=== PATIENT | female | born 1995 | race Caucasian/White ===

== ENCOUNTER 2019-02-10 13:03 | Inpatient (IN) | payer OTHER ==
[~2019-02-10] VITALS: Ht 157.5 cm; Wt 77.3 kg
--- NOTE | 2019-02-10 13:41 | TRIAGE ---
OB Triage Datetime Report Generated by CPN: 02/10/2019 13:40 Datetime: 02/10/2019 13:23 Assessment Type: Triage Maternal Assessment Level of Consciousness: Fully Conscious DTR's/Clonus: DTRs 2+; No Clonus Headache: Denies Blurred Vision: No Respiratory Effort: Unlabored; Regular Rhythm; Equal Expansion Breath Sounds, Left: Clear and Equal Breath Sounds, Right: Clear and Equal Nausea/Vomiting: Denies RUQ Epigastric Pain: Denies Lower Extremities Edema: None Degree: None Upper Extremities Edema: None Degree: None Facial Edema: None Fall Risk Assessment History of Falling: (0) No Secondary Diagnosis: (0) No Ambulatory Aid: (0) Bedrest/Nurse Assist IV Therapy: (0) No Gait: (0) Normal/Bedrest/Immobile Mental Status: (0) Oriented to Own Ability Fall Score: 0 Fall Risk Score Definition: No Risk: No action required Datetime: 02/10/2019 13:22 EGA: 40.6 Datetime: 02/10/2019 12:48 Time of Arrival: 02/10/2019 12:48 Arrived By: Ambulatory Arrived From: Home Chief Complaint: PT CAME IN STATING THAT HER DUE DATE WAS 02/04 AND THAT THE CLINIC TOLD HER TO COM E TODAY FOR MONITORING Movement: Present Contractions: Denies/Absent Rupture of Membranes: Denies Vaginal Discharge: Denies Recent Sexual Intercouse: Denies Abdominal Trauma: Not Applicable Additional Patient Complaints: NONE Time Provider Notified: 02/10/2019 13:22 Provider Notified: VALENTINE Initial Plan: CARTER ROACH EFW
[2019-02-10] MEDS ORDERED: AMPICILLIN 2 GM/NS (PMX) 100 ML ONE (14:56)
[2019-02-10] MEDS ORDERED: LACTATED RINGER'S 1,000 ML IV SCH (14:59)
[2019-02-10] MEDS ORDERED: CARBOPROST 250 MCG INJ IM PRN ×2 (15:00→20:30)
[2019-02-10] MEDS ORDERED: OXYTOCIN 30 UNITS/LR 500 ML IV SCH ×2 (15:00)
[2019-02-10] MEDS ORDERED: MISOPROSTOL 200 MCG TAB PR PRN ×2 (15:00→20:30)
[2019-02-10] MEDS ORDERED: OXYTOCIN 30 UNITS/LR 500 ML IV PRN ×2 (15:00→20:30)
[2019-02-10] MEDS ORDERED: LIDOCAINE 1% (MPF) 30 ML INJ INJ PRN (15:00)
[2019-02-10] MEDS ORDERED: BUTORPHANOL 2 MG INJ IV PRN (15:00)
[2019-02-10] MEDS ORDERED: METHYLERGONOVINE 0.2 MG INJ IM PRN ×2 (15:00→20:30)
[2019-02-10] MEDS ORDERED: AMPICILLIN 2 GM/NS (PMX) 100 ML IV ONE (15:00)
[2019-02-10] MEDS ORDERED: AMPICILLIN 1 GM/NS (PMX) 50 ML IV SCH (17:30)
--- NOTE | 2019-02-10 19:50 | HP ---
Date/Time of Note Date/Time of Note DATE: 02/10/19 TIME: 19:47 OB - History Hx of Present Free Text/Dictation 23 years old 2 para 1-0-0-1 with single intrauterine at 40 weeks and 6 days with OMKAR of 02/04/2019 complaining of uterine contractions. She states good movement. She denies nausea, vomiting, shortness of breath, chest pain, headache, visual changes, vaginal bleeding or LOF. Chief Complaint: Uterine contractions Estimated Due Date: Feb 04, 2019 : 2 Para: 1 Spontaneous : 0 Therapeutic : 0 Care: Good Care Ultrasounds: Normal mid trimester US Obstetrical Complications: None Medical Complications: None Past Family/Social History * Past Medical, Surgical, Family and Obstetric Histories reviewed which are unremarkable Blood Type: O+ Rubella: immune RPR/VDRL: Negative GBS Status: Unknown HBsAG: Negative OB Admission Exam Vital Signs Vital Signs Blood pressure 115/67, pulse rate 74/minutes, respiratory rate 16/minutes, temperature 98.5 Physical Exam HEENT: WNL Heart: Rhythm Normal Lungs: Clear Abdomen: WNL Extremities: Normal Reflexes: Normal Cervical Dilatation: 6cm Effacement: 100% Station: -2 Membranes: Intact Heart Rate: 130's Accelerations: Accelerations Present Decelerations: No Decelerations Varibility: Moderate Contractions on Admission: < 5 Minutes Apart Intensity: Firm Last 72 hours Lab Results CBC & BMP 02/10/19 15:00 OB Assessment/Plan Other plan: 23 years old 2 para 1-0-0-1 with single intrauterine at 40 weeks and 6 days in active labor - FHR: No sign of metabolic acidosis- Category I - Continuous EFM, toco - CBC, blood type and screen - Analgesia options with R/B/A discussed in detail with patient - Epidural per patient request - Please see the orders - O+/Rubella: Immune - GBS: Unknown, ampicillin ordered Admission, procedures, expectations, risks and possible complications have been discussed in detail with the patient. Risk of vaginal delivery including but not limited to bleeding, infection, cervical laceration, placental retention, injury to fetus, blood transfusion, blood transfusion related infection, risk of anesthesia, adhesion, cervical laceration, episiotomy/laceration, possible delivery with risk of bleeding, infection, injury to other organs (bowel, bladder, ureter, vessels, nerves), injury to fetus, blood transfusion, blood transfusion related infection, risk of anesthesia, scar and hernia formation, needs for future , removal of uterus or any other indicated surgery discussed with the patient. She expressed understanding and repeats the risks. All of her questions were answered. She signed the informed consent. PHYSICIAN'S VERIFICATION OF INFORMED CONSENT The patient was counseled regarding the procedure, its indications, risks, potential complications and alternatives and any questions were answered. Consent was obtained. PLANNED PROCEDURE/TREATMENT: Vaginal delivery, episiotomy, repair of laceration possible delivery WILLEM GRIJALVA Feb 10, 2019 19:50
--- NOTE | 2019-02-10 19:56 | LDN ---
Date/Time of Note Date/Time of Note DATE: 02/10/19 TIME: 19:50 Delivery Summary 23 years old 2 para 1-0-0-1 with single intrauterine at 40 weeks and 6 days delivered a viable female over intact perineum with compound presentation at the right occiput transverse. Nose and mouth suction. Rest of body delivered. Cord clamped and cut after stopping pulsation. Baby given to the nurse. Placenta delivered intact and spontaneously with three- vessel cord. Patient tolerated procedure well. Time of delivery 17:49 Weight 8 pounds 5 ounces 9 at 1 minutes and 9 at 5 minutes EBL 150 mL Weeks of Gestation 40 weeks and 6 days Placenta Delivered: Spontaneously Meconium: Light Episiotomy: No Estimated blood loss: 300 Sponge & Needle done & correct: Yes All needle counts correct: Yes Infant Delivery Information Sex Sex: female Apgars 1 Minute: 9 5 Minute: 9 10 Minute: 10 Suctioning Nose & mouth suctioned at rob: Yes Umbilical Cord Umbilical cord with: 3 Vessels Cord presentations: no nuchal cord Cord Blood was obtained: Yes Mother & Baby Disposition Disposition Mom & Baby to Maternity; Good: Yes WILLEM GRIJALVA Feb 10, 2019 19:56
[2019-02-10 20:10] VITALS: BP 121/56; PULSE 75; RESP 18
[2019-02-10] MEDS: DEXTROSE 5%-LR 1,000 ML IV SCH (20:18)
[2019-02-10] MEDS ORDERED: ACETAMINOPHEN 325 MG TAB PO PRN (20:30)
[2019-02-10] MEDS ORDERED: DIPHENHYDRAMINE 50 MG INJ IV PRN (20:30)
[2019-02-10] MEDS ORDERED: DIBUCAINE 1% 30 GM OINT TOP PRN (20:30)
[2019-02-10] MEDS ORDERED: WITCH HAZEL/GLYCERIN PAD PR PRN (20:30)
[2019-02-10] MEDS ORDERED: SENNA/DOCUSATE NA (8.6MG/50MG) TAB PO PRN (20:30)
[2019-02-10] MEDS ORDERED: BENZOCAINE 20% 56 ML SPRAY TOP PRN (20:30)
[2019-02-10] MEDS ORDERED: MAGNESIUM HYDROXIDE 30ML CUP PO PRN (20:30)
[2019-02-10] MEDS ORDERED: ONDANSETRON 4 MG INJ IV PRN (20:30)
[2019-02-10] MEDS ORDERED: LANOLIN HPA 1 PKT TOP PRN (20:30)
[2019-02-10] MEDS ORDERED: OXYCODONE/ASPIRIN (4.88/325) TAB PO PRN (20:30)
[2019-02-10] MEDS ORDERED: ZOLPIDEM 5 MG TAB PO PRN (20:30)
[2019-02-10 20:40] VITALS: BP 112/59; PULSE 73; RESP 18
[2019-02-10] MEDS: LACTATED RINGER'S 1,000 ML IV* SCH (23:22)
[2019-02-10] MEDS: IBUPROFEN 600 MG TAB PO SCH (23:41)
[2019-02-11] VITALS: BP 106/59; PULSE 72; RESP 18
[2019-02-11 04:15] VITALS: BP 102/56; PULSE 69; RESP 18
[2019-02-11] MEDS: DEXTROSE 5%-LR 1,000 ML IV SCH ×2 (04:18→12:18)
[2019-02-11] MEDS: LACTATED RINGER'S 1,000 ML IV* SCH ×2 (04:18→12:18)
[2019-02-11] MEDS: IBUPROFEN 600 MG TAB PO SCH ×3 (06:02→18:09)
[2019-02-11 10:44] VITALS: BP 115/58; RESP 18
[2019-02-11 15:40] VITALS: BP 101/53; PULSE 69; RESP 18
[2019-02-11 20:25] VITALS: BP 108/72; PULSE 64; RESP 18
--- NOTE | 2019-02-11 21:11 | PN ---
Date/Time of Note Date/Time of Note DATE: 02/11/19 TIME: 21:09 OB Subjective Subjective Subjective PPD# 1 Patient is doing well. She denies nausea, vomiting, shortness of breath, chest pain, headache. She has been ambulating without difficulty, tolerating regular diet. Pain is well controlled on current medications OB Objective Objective Objective VS - Last 72 Hours, by Label Date Temp Pulse Resp B/P (MAP) Pulse Ox O2 O2 Flow FiO2 Time Delivery Rate 02/11/19 98.6 69 18 101/53 15:40 (69) 02/11/19 98.3 18 115/58 Room Air 10:44 (77) 02/11/19 98.2 69 18 102/56 Room Air 04:15 (71) 02/11/19 98.6 72 18 106/59 Room Air 00:00 (75) 02/10/19 98.1 73 18 112/59 Room Air 20:40 (76) 02/10/19 98.2 75 18 121/56 Room Air 20:10 (77) General: AAO X 3, comfortable, NAD, appropriate mood and affect. ABD: +BS. Soft, non-tender. Uterus 2 cm below umbilicus Flank: No CVA tenderness (B/L) LE: Mild edema. No clubbing, cyanosis, thigh or calf tenderness (B/L). Homans 'sign is negative Laboratory Tests Test 02/10/19 15:00 02/11/19 07:32 White Blood Count 9.3 10^3/ul 10.6 10^3/ul Red Blood Count 4.32 10^6/ul 3.62 10^6/ul Hemoglobin 12.4 g/dl 10.4 g/dl Hematocrit 38.1 % 31.3 % Mean Corpuscular Volume 88.2 fl 86.5 fl Mean Corpuscular Hemoglobin 28.7 pg 28.7 pg Mean Corpuscular Hemoglobin Concent 32.5 g/dl 33.2 g/dl Red Cell Distribution Width 14.7 % 14.6 % Platelet Count 292 10^3/UL 279 10^3/UL Mean Platelet Volume 11.0 fl 11.0 fl Immature Granulocytes % 0.300 % 0.400 % Neutrophils % 72.4 % 57.0 % Lymphocytes % 21.1 % 33.3 % Monocytes % 5.4 % 7.6 % Eosinophils % 0.4 % 1.4 % Basophils % 0.4 % 0.3 % Nucleated Red Blood Cells % 0.0 /100WBC 0.0 /100WBC Immature Granulocytes # 0.030 10^3/ul 0.040 10^3/ul Neutrophils # 6.7 10^3/ul 6.0 10^3/ul Lymphocytes # 2.0 10^3/ul 3.5 10^3/ul Monocytes # 0.5 10^3/ul 0.8 10^3/ul Eosinophils # 0.0 10^3/ul 0.2 10^3/ul Basophils # 0.0 10^3/ul 0.0 10^3/ul Nucleated Red Blood Cells # 0.0 10^3/ul 0.0 10^3/ul Prothrombin Time 12.4 Sec Prothrombin Time Ratio 1.0 INR International Normalized Ratio 0.91 Activated Partial Thromboplast Time 31.2 Sec Rapid Plasma Reagin NONREACTIVE Hepatitis B Surface Antigen NEGATIVE OB Assessment/Plan Other plan: 23 years old 2 para 2001 s/p normal vaginal delivery at 40 weeks and 6 days. PPD#1 - Contraception methods with R/B/A/FR discussed - Continue care - Discharge home tomorrow - Rx and instruction given - Follow up in 2 and 6 weeks at clinic WILLEM GRIJALVA Feb 11, 2019 21:11
--- NOTE | 2019-02-11 21:12 | DS ---
Date/Time of Note Date/Time of Note DATE: 02/11/19 TIME: 21:11 Obstetrical Discharge Record Final Diagnosis Final Diagnosis: Term delivered Other Final Diagnosis 23 years old 2 para 2002 s/p normal vaginal delivery at 40 weeks and 6 days. PPD#1. course was unremarkable. She is ambulating and tolerating regular diet. She is voiding without difficulty. Pain is controlled on current medication. - Contraception methods with R/B/A/FR discussed - Continue care - Discharge home tomorrow - Rx and instruction given - Follow up in 2 and 6 weeks at clinic Vaginal Delivery Obstetrical Delivery: Spontaneous Condition on Discharge Physical Assessment Last Vitals: Vital Signs Date Temp Pulse Resp B/P (MAP) Pulse Ox O2 O2 Flow FiO2 Time Delivery Rate 02/11/19 98.6 69 18 101/53 15:40 (69) 02/11/19 Room Air 10:44 Voiding: Yes Bowel Movement: Yes Breast: Soft, non-tender Fundus: Firm Calf Tenderness: No Patient Condition: Stable WILLEM GRIJALVA Feb 11, 2019 21:12
[2019-02-12] MEDS: IBUPROFEN 600 MG TAB PO SCH ×3 (00:05→11:59)
[2019-02-12 04:00] VITALS: BP 101/57; PULSE 62; RESP 18
[2019-02-12 07:30] VITALS: BP 94/51; PULSE 60; RESP 18
[2019-02-12] MEDS ORDERED: MEASLES,MUMPS,RUBELLA VACCINE INJ SC* ONE (09:00)
[2019-02-12] MEDS ORDERED: DIPHTH/TET/ACEL PERTUSS (ADULT) 0.5 ML VIAL IM* ONE (09:00)
--- NOTE | 2019-02-13 15:53 | DELSUM ---
Delivery Summary A-C Datetime Report Generated by CPN: 02/13/2019 15:53 DELIVERY PERSONNEL Backup Administrator: Enoch Woodalla MATERNAL INFORMATION Delivery Anesthesia: None Medications in Delivery: 30 units pitocin, cytotec 400mcg PO, 400mcg SC Delivery QBL (ml): 122 Placenta Cultured: No Maternal Complications: None LABOR SUMMARY EDC: 02/04/2019 00:00 No. Babies in Womb: 1 Attempted: No Labor Anesthesia: None LABOR INFORMATION Reason for Induction: Not Applicable Onset of Labor: 02/10/2019 13:00 Complete Dilatation: 02/10/2019 17:45 Oxytocin: N/A Group B Beta Strep: Done, Result Unknown Antibiotics # of Doses: 1 Antibiotics Time of Last Dose: 02/10/2019 15:42 Steroids Given: None Reason Steroids Not Administered: Not Applicable MEMBRANES Membranes Rupture Method: Artificial Rupture of Membranes: 02/10/2019 17:31 Length of Rupture (hr): 0.30 Amniotic Fluid Color: Light Meconium Amniotic Fluid Amount: Large Amniotic Fluid Odor: None STAGES OF LABOR Stage 1 hr: 4 Stage 1 min: 45 Stage 2 hr: 0 Stage 2 min: 4 Stage 3 hr: 0 Stage 3 min: 4 Total Time in Labor hr: 4 Total Time in Labor min: 53 VAGINAL DELIVERY Episiotomy: None Laceration Extension: N/A Laceration Type: None Laceration Repair: Not Applicable Initial Vag Sponge Count: 10 Final Vag Sponge Count: 10 Initial Vag Sharps Count: 1 Final Vag Sharps Count: 1 Sponge Count Correct: Yes; Vaginal Sweep Performed Sharps Count Correct: Yes BABY A INFORMATION Infant Delivery Date/Time: 02/10/2019 17:49 Method of Delivery: Vaginal Born in Route : No : N/A Forceps: N/A Vacuum Extraction: N/A Shoulder Dystocia : N/A SHOULDER DYSTOCIA BABY A Infant Delivery Date/Time: 02/10/2019 17:49 PRESENTATION/POSITION BABY A Presentation: Compound Cephalic Presentation: Vertex Vertex Position: Rt Occipital Transverse Breech Presentation: N/A PLACENTA INFORMATION BABY A Placenta Delivery Time : 02/10/2019 17:53 Placenta Method of Delivery: Spontaneous Placenta Status: Delivered SCORES BABY A Heart Rate 1 min: >100 bpm Resp Effort 1 min: Good Cry Reflex Irritability 1 min: Cough/Sneeze/Pulls Away Muscle Tone 1 min: Active Motion Color 1 min: Body [place], Extremit Blue Resuscitation Effort 1 min: Tactile Stimulation SCORE 1 MIN: 9 Heart Rate 5 min: >100 bpm Resp Effort 5 min: Good Cry Reflex Irritability 5 min: Cough/Sneeze/Pulls Away Muscle Tone 5 min: Active Motion Color 5 min: Body [place], Extremit Blue Resuscitation Effort 5 min: Tactile Stimulation SCORE 5 MIN: 9 INFORMATION BABY A Gestational Age at Delivery: 40.6 Gestational Status: Full Term- 39- 40.6 Weeks Infant Outcome : Liveborn Condition : Stable Sex: Female IDENTIFICATION/MEDS BABY A ID Band Number: [id number] ID Band Location: Right Leg; Left Arm Sensor Applied: Yes Sensor Number: [id number] Sensor Location : Cord Clamp Vitamin K Given : Not Given Erythromycin Given: Not Given WEIGHT/LENGTH BABY A Birthweight (gm): 3780 Infant Weight (lb): 8 Weight (oz): 5 Infant Length (in): 19.50 Infant Length (cm): 49.53 CORD INFORMATION BABY A No. Cord Vessels: 3 Nuchal Cord : N/A Cord Blood Taken: Yes Infant Suction: Mouth; Nose ASSESSMENT BABY A Infant Complications: Meconium Physical Findings at Delivery: Within Normal Limits Infant Respirations: Appears Normal Link Trainer Teacher/ALS Called : No Care By: Tejinder Mcknight Transferred To: Remains with Mother
== END 2019-02-12 15:53 | disposition home or self-care (01) | DRG 807 ==
LOC: OBT 13:03 → L-D 13:05 → OBT 13:22 → L-D 13:22 → PP1 20:11
PROVIDERS: ADMIT Obstetrics & Gynecology; ATTEND Obstetrics & Gynecology
PROC: 10E0XZZ Delivery of Products of Conception, External Approach (ICD-10-PCS; principal; 2019-02-10)
PROC: 10907ZC Drainage of Amniotic Fluid, Therapeutic from Products of Conception, Via Natural or Artificial Opening (ICD-10-PCS; 2019-02-10)
DX: O48.0 Post-term pregnancy (principal); Z37.0 Single live birth; Z3A.40 40 weeks gestation of pregnancy
CPT/HCPCS: 76815; 76818; 85025; 85610; 85730; 86592; 86850; 86900; 86901; 87340; 90715; 99464; G0463; J0290; J2590; J7120; J7121